=== PATIENT | female | born 1980 | race Caucasian/White ===

== ENCOUNTER 2016-09-06 13:47 | Inpatient (IN) ==
[2016-09-06 14:20] LABS: Basophils # 0.1 K/mcL (0.0-0.2); Basophils % 0.4 %; Eosinophils # 0.2 K/mcL (0.0-0.6); Eosinophils % 1.1 %; Hematocrit 37.6 % (35.3-44.9); Hemoglobin 12.7 g/dL (11.5-15.4); Immature Granulocytes % 0.4 % (0-4); Lymphocytes # 3.3 K/mcL (0.6-4.6); Lymphocytes % 24.1 %; Mean Corpuscular HGB Conc 33.8 g/dL (31.6-35.5); Mean Corpuscular Hemoglobin 28.7 pg (28.0-33.3); Mean Corpuscular Volume 85.1 fL (83.0-100.0); Monocytes # 0.7 K/mcL (0.0-1.3); Monocytes % 4.8 %; Neutrophils # 9.5 K/mcL (1.6-8.9); Platelet Count 283 K/mcL (140-400); Red Blood Count 4.42 M/mcL (3.82-4.97); Red Cell Distribution Width 13.2 % (11.5-14.5); Segmented Neutrophils % 69.2 %
[2016-09-06 14:26] LABS: Protein/Creatinine Ratio,Urine 0.52 mg/mg (0-0.20)
[2016-09-06] MEDS ORDERED: *HR* Labetalol 20 MG/4 ML SYRINGE IVP ONE (14:26)
[2016-09-06 15:08] LABS: Alanine Aminotransferase 7 Units/L (0-55); Aspartate Amino Transferase 13 Units/L (5-34); BUN/Creatinine Ratio 9 (6-26); Blood Urea Nitrogen 6 mg/dL (7-20); Lactate Dehydrogenase 171 Units/L (159-327); Uric Acid 3.6 mg/dL (2.6-6.0); eGFR For African Americans > 60 (> 60); eGFR For Non-African Americans > 60 (> 60)
[2016-09-06] MEDS ORDERED: Famotidine 20 MG/2 ML VIAL IVP PRN (15:20)
[2016-09-06] MEDS ORDERED: Naloxone 0.4 MG/ML INJ IVP PRN (15:20)
[2016-09-06] MEDS ORDERED: Ringers Solution, Lactated 1,000 ML IVC SCH (15:30)
--- NOTE | 2016-09-06 15:37 | OB/GYN History & Physical ---
Date of Encounter: 09/06/16 Time of Encounter: 15:22 Assessment and Plan (1) 37 weeks gestation of Current visit: Yes Status: Acute (2) Pre-eclampsia added to pre-existing hypertension Current visit: Yes Status: Acute UPCR 0.52. Labs WNL. BP severe range requiring IV Labetalol. Admit for delivery. Pt with cervical change since arriving from office. SVE now 4/90/0. Epidural when able. If BP not well controlled with Labetalol, will consider magnesium sulfate. (3) Spontaneous onset of labor Current visit: Yes Status: Acute (4) AMA (advanced maternal age) multigravida 35+ Current visit: Yes Status: Acute Qualifiers: Trimester: third trimester Qualified Code(s): O09.523 - Supervision of elderly multigravida, third trimester History of Present Illness Chief complaint: contractions, elevated blood pressure HPI: Ms. Ryan is a 36 year old female presenting at 37w3d from the office for elevated blood pressure and contractions. She states her contractions are getting stronger and closer together and are now every 3 minutes per her report. She does report a history of preeclampsia with her last 2 pregnancies and was on labetalol with this until a few months ago when she started having some dizziness and low blood pressure. She has not been on any blood pressure medicine for the last few months. She denies PHILLIPS, vision changes, or RUQ pain today. Good FM. No VB or LOF. Her has been complicated by AMA status, chronic HTN, abnormal NT and history of PTD at 34 weeks. Her blood pressure in the office today was 166/112. She also has a history of fast deliveries and was 4/80/-1 in the office today. Past Med Surg Social Fam HX - Past Medical History Medical history: no medical history Psychiatric history: no psych history - Past Surgical History Surgical History: no surgical history - Social History Smoking Status: Current every day smoker Packs per day: 0.5 pack Smokeless Tobacco Status: No Alcohol use: none Drug use: none - Family History Mother Adopted: [place]: Sari Living Status: Still Living Hx Family Cardiac Disorders: No Hx Family Respiratory Disorders: No Hx Family Cancer: No Hx Family GI Disorders: No Hx Family Genitourinary Disorders: No Hx Family Endocrine Disorder: No Hx Family Musculoskeletal Disorders: No Hx Family Neuromuscular Disorders: No Hx Family Neurologic Disorders: No Hx Family HEENT Disorders: No Hx Family Autoimmune Disorders: No Hx Family Reproductive Disorders: No Hx Family Psychosocial Disorders: No Hx Family Medical Disorders: No Obstetrical History - Pregnancies : 7 Para: 5 Term: 4 : 1 Livin Medications and Allergies Multi Tablet 09/06/16 [History] Allergies No Known Allergies Allergy (Verified 09/06/16 14:13) Review of System OB All systems PM: reviewed and no additional remarkable complaints except as stated Exam - Constitutional Constitutional: well developed, well nourished, mild distress - HEENT HEENT: Mucus Membranes Moist - Lungs Respiratory exam: CTAB - Cardiovascular Cardiovascular exam: RRR, +S1, +S2 - Abdomen Abdomen: Present: gravid, non tender - Extremities Extremities exam: normal inspection Deep Tendon Reflex Grade: 2+ Normal - Vulva Vulva: bilateral: normal - Vagina Vagina: Present: normal moisture - Cervix Dilation: 4 Effacement: 90 Station: 0 - Uterus Uterus exam: Present: normal size (EFW 5 1/2lbs) - Anus/Rectum Anus/Rectum: Present: normal perianal skin Results Result Diagrams: 09/06/16 14:00 09/06/16 14:00 Abnormal lab results WBC 13.8 K/mcL (4.3-11.1) H 09/06/16 14:00 Neutrophils # 9.5 K/mcL (1.6-8.9) H 09/06/16 14:00 BUN 6 mg/dL (7-20) L 09/06/16 14:00 Protein/Creatinin Ratio 0.52 mg/mg (0-0.20) H 09/06/16 14:00 Urine Total Protein 77 mg/dL (1-14) H 09/06/16 14:00 All other labs normal. - VTE Reasons for not Prescribing Prophylaxis: Treatment not Indicated - Low risk for VTE
[2016-09-06] MEDS ORDERED: Epidural Premix (fent/bupiv) 110 ML EP ONE (16:04)
[2016-09-06] MEDS ORDERED: Epidural Premix (fent/bupiv) 110 ML EP SCH (16:15)
--- NOTE | 2016-09-06 17:07 | Anesthesia Evaluation PreOp ---
Date of Encounter: 09/06/16 Time of Encounter: 16:00 - Past History Planned Operation: wilner Cardiac History: Denies any Significant Hx, HTN Pulmonary History: Smoker [employer]IDENT [employer]GEMENT History: Denies Any Significant HX Other Medical History: Denies Any Significant HX Anesthesia History: No Prior Anesthetic Complications : Yes Test: Positive Alcohol Use: none Drug use: none Medications and Allergies Multi Tablet 09/06/16 [History] Allergies No Known Allergies Allergy (Verified 09/06/16 14:13) - Meds/Allergy Pre-op Review Medications Reviewed: Yes Allergies Reviewed: Yes Beta Blockers on Current Med List: Yes If Beta Blockers taken, Date/Time (Last Dose taken): 09/06/2016 Anesthesia Results - Labs 09/06/16 14:00 09/06/16 14:00 Anesthesia Exam 1144/98 78 18 98% Height: 64 Weight: 68.3 NPO (# of Hours): mn Pain Scale: 6 - HEENT Pupil (Motor): Pupils equal Mallampati: II Teeth: Normal Oral Opening: Greater than 3 - [employer] LOC: Oriented [employer] Motor: Normal RUE, Normal LUE, Normal RLE, Normal LLE, Normal Face [employer] Sensory: Normal: RUE, LUE, RLE, LLE, Face - Cardiac Rhythm: Regular Murmur: None JVD: No Carotid Bruit: No - Pulmonary Breath Sounds: bilateral Clear Respiratory Effort: Symmetrical Anesthesia Assess/Plan ASA Score: 2 Modified [place] Scale for Level of Consciousness: Cooperative, oriented, and tranquil Anesthetic Plan: Regional Autologous Blood: No Monitoring Plan: Standard Monitors
--- NOTE | 2016-09-06 17:12 | Anesthesia Procedures ---
Date of Encounter: 09/06/16 Time of Encounter: 16:00 Procedures: Anesthesia - Epidural/Spinal Patient ID/Chart reviewed: Yes Patient examined: Yes OB Eval: : 7 OB Eval: Hx Para: 5 OB Eval: Contractions: Non-stressed pattern Consent Obtained: Yes Supplemental Oxygen: None/Room Air Site Prep: Aseptic Technique, Sterile prep and drape, Povidone-Iodine 1% Patient position: upright Local Anesthetic: Lidocaine 1% Amount of Local Anesthetic used: 3 Touhy Needle Gauge: 18 Touhy Needle Depth (cm): 6 Catheter Depth at Skin (cm): 9 Test Dose Result: Negative
--- NOTE | 2016-09-06 18:44 | OB Labor Progress Note ---
Date of Encounter: 09/06/16 Time of Encounter: 18:30 Labor Progress Note - Subjective Subjective: Patient states feeling contractions within not getting back close feeling a little bit of pressure but tolerating contractions well. Patient does have the epidural and is very comfortable blood pressure has been stable since getting the IV labetalol - Cervix Cervix: 4/80/+1 - Heart Tones Heart Tones: heart tones 140s reactive - [place]: Contractions every 5 minutes - Plan Plan: Will augment with Pitocin and anticipate vaginal delivery
[2016-09-06] MEDS ORDERED: Oxytocin 20 units/ LR 1000 mL 20 UNIT/1,000 ML BAG IVC SCH (18:45)
--- NOTE | 2016-09-06 20:02 | OB Labor Progress Note ---
Date of Encounter: 09/06/16 Time of Encounter: 20:00 Labor Progress Note - Subjective Subjective: Patient still very comfortable - Cervix Cervix: 6-7/100/+1 - Heart Tones Heart Tones: heart tones 140s reactive - Grawn Grawn: Contractions every 2 minutes - Plan Plan: Anticipate normal spontaneous vaginal delivery
--- NOTE | 2016-09-06 21:00 | OB/GYN Procedure Note ---
Delivery - Delivery Date: 09/06/16 Provider: Will Talavera Intrapartum events: none Delivery induction: AROM, other (Pitocin) Delivery monitor: external FHT, external uterine Anesthesia: epidural Estimated Blood Loss: 100 - Infant (s) A Infant Delivery Date: 09/06/16 Infant Delivery Time: 20:32 Presentation: vertex Position: CHRISTI Route of delivery: Gender: Male Viability: Viable Pounds: 5 Ounces: 8 Weight Gram: 2.49 kg at 1 minute: 8 at 5 mins: 9 Shoulder Dystocia: not encountered Specimens collected: cord blood Placenta: spontaneous Cord: nuchal cord, 3 umbilical vessels, nuchal reduced - Repair Episiotomy: none Laceration Description: None - Complications Delivery complications: none Delivery comments: Patient is a 36-year-old 7 para 4115 at 37-3/7 weeks who presented to labor and delivery from the office secondary to elevated blood pressures with advanced cervical dilatation. Patient blood pressure is 166/112 and patient was 4 cm in the office. Patient has a history of precipitous deliveries and she gets to 5 cm she goes to complete within an hour and has missed epidurals with all her other pregnancies. She lives 45 minutes from the hospital. Repeat blood pressure remained elevated presented to labor and delivery for evaluation. On labor and delivery patient's blood pressure continued to remain elevated to the point we have to give her IV labetalol. She does have a history of chronic hypertension but has been stable throughout the . She was on labetalol but we had to stop it because she was becoming symptomatic from the blood pressure being too low. We did PIH labs and a protein creatinine ratio which was abnormal. Did inform the patient appears she might be developing superimposed preeclampsia and recommended proceeding on with delivery. She was augmented with Pitocin after epidural had been placed. She was artificially ruptured for clear fluid. Once that the contractions 2 minutes apart patient went from or centimeters to 7 cm and within 30 minutes was complete. Patient pushed 1 time delivering a viable male in left occiput anterior presentation at 2031. There was a nuchal cord 1 loose and reduced there was no meconium, the was bulb suctioned on the abdomen. Apgars were 8 at 1 minute, 9 at 5 minutes, infant weight was 5 lbs. 8 oz. 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 Perineum cervix vagina was visualized intact. Patient tolerated the delivery well she will be observed 2 hours before being taken to the floor. - Disposition Mom disposition: stable in LDR disposition: stable in LDR
[2016-09-06] MEDS ORDERED: Oxytocin 20 units/ LR 1000 mL 20 UNIT/1,000 ML BAG IVC ONE (23:22)
[2016-09-06] MEDS ORDERED: Oxytocin 20 units/ LR 1000 mL 20 UNIT/1,000 ML BAG IV SCH (23:22)
[2016-09-06] MEDS ORDERED: Measles/Mumps/Rubella Vacc 0.5 ML VIAL SQ PRN (23:22)
[2016-09-06] MEDS ORDERED: Acetaminophen 325 MG TABLET PO PRN (23:22)
[2016-09-07 04:09] LABS: Basophils % 0.3 %; Eosinophils # 0.1 K/mcL (0.0-0.6); Eosinophils % 1.1 %; Immature Granulocytes % 0.4 % (0-4); Lymphocytes % 24.9 %; Mean Corpuscular Hemoglobin 28.6 pg (28.0-33.3); Mean Corpuscular Volume 86.6 fL (83.0-100.0); Mean Platelet Volume 10.8 fL (9.4-12.4); Monocytes # 0.6 K/mcL (0.0-1.3); Monocytes % 5.1 %; Neutrophils # 8.2 K/mcL (1.6-8.9); Platelet Count 242 K/mcL (140-400); Red Blood Count 3.81 M/mcL (3.82-4.97); Red Cell Distribution Width 13.4 % (11.5-14.5); Segmented Neutrophils % 68.2 %
[2016-09-07 04:11] LABS: Hemoglobin 10.9 g/dL (11.5-15.4)
[2016-09-07] MEDS: Ibuprofen 600 MG TABLET PO PRN ×2 (04:12→13:47)
[2016-09-07 08:30] LABS: Alanine Aminotransferase 6 Units/L (0-55); Aspartate Amino Transferase 13 Units/L (5-34); BUN/Creatinine Ratio 8 (6-26); Lactate Dehydrogenase 161 Units/L (159-327); Uric Acid 3.4 mg/dL (2.6-6.0); eGFR For African Americans > 60 (> 60); eGFR For Non-African Americans > 60 (> 60)
[2016-09-07 08:31] LABS: Blood Urea Nitrogen 5 mg/dL (7-20)
[2016-09-07] MEDS ORDERED: Prenatal Vit/FA 1 EACH TABLET PO SCH (09:00)
--- NOTE | 2016-09-07 09:10 | Discharge Summary ---
Date of Encounter: 09/07/16 Time of Encounter: 09:02 - Discharge Diagnosis (1) Pre-eclampsia added to pre-existing hypertension Priority: Secondary Status: Acute Comments: BP normal . (2) Status post vaginal delivery Priority: Primary Status: Acute Comments: Pt meeting milestones. (3) Encounter for care or examination of lactating mother Priority: Secondary Status: Acute Comments: Pt states she needs a new breastpump because she doesn't know where the one she got 3 years ago is - Discharge Medications Prescriptions: Ibuprofen [Motrin] 600 mg PO Q6HR PRN #60 tablet PRN Reason: Cramping Docusate [Colace] 100 mg PO BID #60 capsule Home Medications: Multi Tablet 09/06/16 [History] Breast Pump [BREAST PUMP] 1 each .ROUTE AD #1 each 09/07/16 [Rx] Docusate [Colace] 100 mg PO BID #60 capsule 09/07/16 [Rx] Ibuprofen [Motrin] 600 mg PO Q6HR PRN #60 tablet 09/07/16 [Rx] Allergies/Adverse Reactions: Allergies No Known Allergies Allergy (Verified 09/06/16 14:13) Data Procedures and tests throughout hospitalization: Laboratory Tests 09/06/16 09/06/16 09/06/16 14:00 14:00 14:00 WBC 13.8 H RBC 4.42 Hgb 12.7 Hct 37.6 MCV 85.1 MCH 28.7 MCHC 33.8 RDW 13.2 Plt Count 283 MPV 11.0 Immature Gran % 0.4 Seg Neutrophils % 69.2 Lymphocytes % 24.1 Monocytes % 4.8 Eosinophils % 1.1 Basophils % 0.4 Neutrophils # 9.5 H Lymphocytes # 3.3 Monocytes # 0.7 Eosinophils # 0.2 Basophils # 0.1 BUN 6 L Creatinine 0.67 Est GFR ( Amer) > 60 Est GFR (Non-Af Amer) > 60 BUN/Creatinine Ratio 9 Uric Acid 3.6 AST 13 ALT 7 Lactate Dehydrogenase 171 Urine Creatinine 149 Protein/Creatinin Ratio 0.52 H Urine Total Protein 77 H 09/07/16 09/07/16 03:58 07:41 WBC 12.0 H RBC 3.81 L Hgb 10.9 L D Hct 33.0 L MCV 86.6 MCH 28.6 MCHC 33.0 RDW 13.4 Plt Count 242 MPV 10.8 Immature Gran % 0.4 Seg Neutrophils % 68.2 Lymphocytes % 24.9 Monocytes % 5.1 Eosinophils % 1.1 Basophils % 0.3 Neutrophils # 8.2 Lymphocytes # 3.0 Monocytes # 0.6 Eosinophils # 0.1 Basophils # 0.0 BUN 5 L Creatinine 0.63 Est GFR ( Amer) > 60 Est GFR (Non-Af Amer) > 60 BUN/Creatinine Ratio 8 Uric Acid 3.4 AST 13 ALT 6 Lactate Dehydrogenase 161 Urine Creatinine Protein/Creatinin Ratio Urine Total Protein Labs on day of discharge: Labs from last 24 hours 09/07/16 09/07/16 09/06/16 07:41 03:58 14:00 WBC 12.0 H RBC 3.81 L Hgb 10.9 L D Hct 33.0 L MCV 86.6 MCH 28.6 MCHC 33.0 RDW 13.4 Plt Count 242 MPV 10.8 Immature Gran % 0.4 Seg Neutrophils % 68.2 Lymphocytes % 24.9 Monocytes % 5.1 Eosinophils % 1.1 Basophils % 0.3 Neutrophils # 8.2 Lymphocytes # 3.0 Monocytes # 0.6 Eosinophils # 0.1 Basophils # 0.0 BUN 5 L 6 L Creatinine 0.63 0.67 Est GFR ( Amer) > 60 > 60 Est GFR (Non-Af Amer) > 60 > 60 BUN/Creatinine Ratio 8 9 Uric Acid 3.4 3.6 AST 13 13 ALT 6 7 Lactate Dehydrogenase 161 171 Urine Creatinine Protein/Creatinin Ratio Urine Total Protein 09/06/16 09/06/16 14:00 14:00 WBC 13.8 H RBC 4.42 Hgb 12.7 Hct 37.6 MCV 85.1 MCH 28.7 MCHC 33.8 RDW 13.2 Plt Count 283 MPV 11.0 Immature Gran % 0.4 Seg Neutrophils % 69.2 Lymphocytes % 24.1 Monocytes % 4.8 Eosinophils % 1.1 Basophils % 0.4 Neutrophils # 9.5 H Lymphocytes # 3.3 Monocytes # 0.7 Eosinophils # 0.2 Basophils # 0.1 BUN Creatinine Est GFR ( Amer) Est GFR (Non-Af Amer) BUN/Creatinine Ratio Uric Acid AST ALT Lactate Dehydrogenase Urine Creatinine 149 Protein/Creatinin Ratio 0.52 H Urine Total Protein 77 H Date of admission: 09/06/16 13:47 Consults: 09/06/16 23:22 Consult to [employer] [CONS] Routine Comment: Vaginal delivery, consult needed Discharging clinician: Odilia Romero Anticipated date of discharge: 09/07/16 - Patient Status Disposition: Home, Self-Care Condition: Good Functional capacity at discharge: independent ambulation Overall status at discharge: patient is progressing back to baseline - Discharge Instructions - Diet and Activity Activity: increase activity as tolerated Diet: advance to your usual diet Hospital Course Reason for admission: active labor Delivery: Episiotomy: none Laceration: none Other procedures: none complications: none Discharge diagnosis: IUP at term delivered [place] baby: male Hospital course: - Delivery Date: 09/06/16 Provider: Will Talavera Intrapartum events: none Delivery induction: AROM, other (Pitocin) Delivery monitor: external FHT, external uterine Anesthesia: epidural Estimated Blood Loss: 100 - (s) Infant A Delivery Date: 09/06/16 Delivery Time: 20:32 Presentation: vertex Position: CHRISTI Route of delivery: Gender: Male Viability: Viable Pounds: 5 Ounces: 8 Weight Gram: 2.49 kg at 1 minute: 8 at 5 mins: 9 Shoulder Dystocia: not encountered Specimens collected: cord blood Placenta: spontaneous Cord: nuchal cord, 3 umbilical vessels, nuchal reduced - Repair Episiotomy: none Laceration Description: None - Complications Delivery complications: none - Disposition Mom disposition: home PPD#1 disposition: home with mother, Time Attestation: Total time spent providing and/or coordinating discharge services: Time Spent: Less than 30 minutes Exam - Constitutional Vitals: Temp Pulse Resp BP Pulse Ox 98.1 F 72 16 119/78 97 09/07/16 08:15 09/07/16 08:15 09/07/16 08:15 09/07/16 08:15 09/07/16 08:15 General appearance IM: A&O X 3, pleasant, no acute distress - Respiratory Respiratory exam: Present: CTAB - Cardiovascular Cardiovascular exam IM: Present: RRR, +S1, +S2 - GI/Abdominal GI/Abdominal exam IM: soft - Rectal Rectal exam: deferred - Uterine Tone: Firm Uterus Position: 1 Finger Below Umbilicus - Extremities Exam Extremities exam IM: Present: normal inspection - Neurological Exam Neurological exam: normal gait, oriented X3 - Psychiatric Additional comments: Pt reports good mood
[2016-09-07 21:03] VITALS: BP 136/78
== END 2016-09-07 21:10 | disposition home or self-care (01) | DRG 560 ==
LOC: 1NENULAB → OBSVTOIN 13:47 → 1NENULAB 15:18 → 1NENUOBS 23:05
PROVIDERS: ADMIT Obstetrics & Gynecology; ATTEND Obstetrics & Gynecology